=== PATIENT | male | born 1955 | race Caucasian/White ===

== ENCOUNTER 2017-09-21 09:07 | Emergency (ER) | payer OTHER ==
[~2017-09-21] VITALS: Ht 175.3 cm; Wt 77.1 kg
[2017-09-21 09:12] VITALS: BP 158/103
[2017-09-21] MEDS ORDERED: AUGMENTIN 875-1 EACH PO (09:46)
--- NOTE | 2017-09-21 09:46 | ED ANIMAL BITE/WOUND CHECK ---
History of Present Illness General Chief Complaint: Animal/Insect Bite Stated Complaint: DOG BITE TO HANDS Source: patient, family, old records Exam Limitations: no limitations Vital Signs & Intake/Output Vital Signs & Intake/Output Vital Signs Date Time Temp Pulse Resp B/P B/P Pulse O2 O2 Flow FiO2 Mean Ox Delivery Rate 09/21 0912 98.4 110 18 158/103 96 Room Air Allergies Coded Allergies: NO KNOWN ALLERGIES (08/24/13) Reconcile Medications Amoxicillin/Potassium Clav (Augmentin 875-125 Tablet) 875 MG-125 MG TABLET 1 TAB PO BID dog bites Hydrocodone/Acetaminophen (Dyke 5-325 Tablet) 5 MG-325 MG TABLET 1-2 TAB PO Q4-6 PRN PRN severe pain Ibuprofen 600 MG TABLET 1 TAB PO Q6P PRN pain with food Triage Note: presents to ed for evaluation s/p dog bite. HE WAS 2 DOGS THAT WERE FIGHTING AND HE ATTEMPTED TO INTERVINE AND IN THE PROCESS HE WAS BITTEN OON BOTH HANDS. BOTH DOGS ARE UP TO DATE WITH ALL VACCINES HE STATES. Triage Nurses Notes Reviewed? yes Onset: Afternoon Duration: day(s):, better, constant, continues in ED Timing: recent history Injury Environment: home Is Injury an Animal Bite? Yes Animal Type: dog, family pet Context of Animal Attack: animals fighting, entered animal's domain Appearance of Animal: appeared well Animal Immunization Status: up to date Observation/Capture: animal known/obs x10 days Severity of Attack: bitten Severity: moderate No Modifying Factors: none HPI: 1 day prior to admission patient talks were fighting and he tried to break them up sustaining laceration and puncture wounds to bilateral hands and fingers forearms. He bandaged them up without significant bleeding. He denies fever chills nausea vomiting diarrhea abdominal pain chest pain shortness breath headache dysuria rash active bleeding. He is right-hand dominant Past History Travel History Traveled to [place] past 21 day No Medical History Any Pertinent Medical History? see below for history Cardiovascular: hypertension Surgical History Surgical History: non-contributory Psychosocial History Who do you live with Patient/Self Services at Home None What is your primary language Mongolian Tobacco Use: Current Daily Use Daily Tobacco Use Amount/Type: => 5 Cigarettes daily Family History Hx Contributory? No Review of Systems Review of Systems Constitutional: Reports: no symptoms. EENTM: Reports: no symptoms. Respiratory: Reports: no symptoms. Cardiovascular: Reports: no symptoms. GI: Reports: no symptoms. Genitourinary: Reports: no symptoms. Musculoskeletal: Reports: no symptoms. Skin: Reports: see HPI. Neurological/Psychological: Reports: no symptoms. Hematologic/Endocrine: Reports: no symptoms. Immunologic/Allergic: Reports: no symptoms. All Other Systems: Reviewed and Negative Physical Exam Physical Exam General Appearance: well developed/nourished, no apparent distress, alert, awake , comfortable, thin Head: atraumatic, normal appearance Eyes: Bilateral: normal appearance, PERRL, EOMI. Ears, Nose, Throat: normal pharynx, normal ENT inspection, hearing grossly normal Neck: normal inspection, supple, full range of motion, no midline tenderness Respiratory: normal breath sounds, chest non-tender, no respiratory distress, quiet respiration, lungs clear Cardiovascular: regular rate/rhythm, normal peripheral pulses, norml femoral pulses equa Peripheral Pulses: 4+ carotid (R), 4+ carotid (L) Gastrointestinal: normal bowel sounds, soft, non-tender, no organomegaly Back: normal inspection, normal range of motion, no vertebral tenderness Extremities: normal range of motion, evidence of injury, scattered abrasions puncture wounds on bilateral hands and forearms without active bleeding 2 superficial lacerations one to dorsum of left hand and right thumb no active bleeding Neurologic/Psych: awake, alert, oriented x 3, normal mood/affect Reflexes: 2+: bicep (R), bicep (L). Skin: intact, normal color, warm/dry Lymphatic: no anterior cervical jose Progress Differential Diagnosis: dog bite Plan of Care: Current Medications Sig/Colt Start time Last Medication Dose Stop Time Status Admin Amoxicillin/ 875 MG ONCE ONE 09/21 1000 UNVr Clavulanate Potassium 09/21 1001 (Augmentin) Departure Departure Time of Disposition: 943 Disposition: HOME OR SELF CARE Condition: Stable Clinical Impression Primary Impression: Dog bite of left forearm without complication Secondary Impressions: Dog bite of multiple sites of left hand and fingers, Dog bite of multiple sites of right hand and fingers, Dog bite of right forearm without complication Referrals: Sandrita Sullivan MD (PCP/Family) Departure Forms: Customer Survey General Discharge Information Prescriptions: Current Visit Scripts Amoxicillin/Potassium Clav (Augmentin 875-125 Tablet) 1 TAB PO BID #14 TAB Ibuprofen 1 TAB PO Q6P PRN pain #30 TAB with food Hydrocodone/Acetaminophen (Dyke 5-325 Tablet) 1-2 TAB PO Q4-6 PRN PRN severe pain #15 TAB
[2017-09-21] MEDS ORDERED: NORCO 5-325 TA1 EACH PO (09:50)
[2017-09-21] MEDS ORDERED: IBUPROFEN600 M1 PO (09:50)
== END 2017-09-21 09:57 ==
LOC: ERH 09:07
DX: S51.852A Open bite of left forearm, initial encounter (principal); S61.452A Open bite of left hand, initial encounter; S61.451A Open bite of right hand, initial encounter; S61.259A Open bite of unspecified finger without damage to nail, initial encounter; W54.0XXA Bitten by dog, initial encounter; Y93.9 Activity, unspecified; Y92.009 Unspecified place in unspecified non-institutional (private) residence as the place of occurrence of the external cause